=== PATIENT | female | born 1970 | race Caucasian/White ===

== ENCOUNTER 2018-09-25 23:43 | Emergency (ER) | payer BC ==
[~2018-09-25] VITALS: Ht 165.1 cm; Wt 99.8 kg
[2018-09-26 04:03] VITALS: BP 142/62
== END 2018-09-26 04:13 | disposition short-term general hospital (02) ==
LOC: ED 23:43
DX: S82.101A Unspecified fracture of upper end of right tibia, initial encounter for closed fracture (principal); S82.831A Other fracture of upper and lower end of right fibula, initial encounter for closed fracture; S80.01XA Contusion of right knee, initial encounter; Z88.0 Allergy status to penicillin; W08.XXXA Fall from other furniture, initial encounter; Y93.89 Activity, other specified; Y92.098 Other place in other non-institutional residence as the place of occurrence of the external cause; Y99.8 Other external cause status

== ENCOUNTER → 2022-01-14 | Outpatient (CLI) | payer BC ==
[~2022-01-14] MED LIST: BISOPROLOL FUMAR5 MG PO; CALCIUM + VITA1 EAC2 PO; FLONASE ALLERG9.9 ML NAS; Synthroid,Levo50 MCG PO; VITAMIN B COMP1 EAC1 PO
== END | disposition home or self-care (01) ==
LOC: US 15:39
PROVIDERS: ATTEND Family Medicine
DX: E04.2 Nontoxic multinodular goiter (principal)